=== PATIENT | female | born 1960 | race Caucasian/White ===

== ENCOUNTER 2024-10-14 12:52 | Emergency (ER) | payer OTHER ==
[~2024-10-14] VITALS: Ht 162.6 cm; Wt 102.3 kg
[2024-10-14 13:01] VITALS: TEMP 98.5
[2024-10-14 15:04] VITALS: BP 122/77; PULSE 76; RESP 18; O2SAT 99
== END 2024-10-14 15:14 | disposition home or self-care (01) ==
LOC: EMS 12:53
DX: I83.891 Varicose veins of right lower extremity with other complications (principal)
CPT/HCPCS: 99281; Z7502